=== PATIENT | female | born 1980 | race Caucasian/White ===

== ENCOUNTER 2019-12-28 08:21 | Emergency (ER) | payer MEDICARE, MEDICAID, SELFPAY ==
[2019-12-28 08:27] VITALS: BP 131/65; BP 138/70; PULSE 67; PULSE 78; RESP 16; TEMP 37.1; O2SAT 96; O2SAT 98; BMI 34.4
--- NOTE | 2019-12-28 08:50 | ECG_ITS ---
Test Reason : PAIN Blood Pressure : / mmHG Vent. Rate : 062 BPM Atrial Rate : 062 BPM P-R Int : 130 ms QRS Dur : 076 ms QT Int : 412 ms P-R-T Axes : 026 012 002 degrees QTc Int : 418 ms Normal sinus rhythm Nonspecific T wave abnormality Inferior leads Borderline ECG No previous ECGs available Referred By: Landy Rothman Electronically Signed By:CECILIO CHAND MD
[2019-12-28] MEDS: Ketorolac Tromethamine 30 MG/ML VIAL IVPUSH (08:52)
[2019-12-28] MEDS: Cyclobenzaprine HCl 10 MG TABLET PO (08:52)
[2019-12-28] MEDS: Lidocaine 4 % Patch ADH..PATCH 1 PATCH TRANSDERMA (08:53)
--- NOTE | 2019-12-28 09:01 | ED.EXTPRO ---
HPI - Extremity Problem General Chief complaint: Extremity Injury, Upper Stated complaint: LEFT SHOULD PAIN,NO KNOWN/RECENT INJURY Time Seen by Provider: 12/28/19 08:25 Source: patient and EMS Mode of arrival: EMS Limitations: no limitations History of Present Illness HPI Narrative: 39 y/o female with history of asthma presenting with acute onset of posterior left shoulder pain that started when she woke up this morning. She states it radiates to under her left armpit. Her was concerned it was cardiac pain so she called 911. Patient states she has never had pain like this before. She took tramdol and tylenol with only minor improvement. She denies injury. She is able to move it fully but it is painful. She states the pain is also worse with deep inspiration. MD Complaint: extremity pain Onset (ago): hour(s) (2) Pain Consistency: constant Location: left and upper extremity Severity scale (1-10): 6 Quality: aching and sharp Radiation: proximal (to under left axilla ) and other Relieving factors: nothing and immobilization Exacerbating factors: range of motion Associated symptoms: denies other symptoms Related Data Previous Rx's Medication Instructions Recorded cyclobenzaprine 10 mg PO TID PRN #20 tab 12/28/19 ibuprofen 600 mg PO Q8H PRN #30 tab NS 12/28/19 Allergies Allergy/AdvReac Type Severity Reaction Status Date / Time acetaminophen [From VICODIN] AdvReac Intermediate UPSET Unverified 11/26/19 19:34 STOMACH hydrocodone [From VICODIN] AdvReac Intermediate UPSET Unverified 11/26/19 19:34 STOMACH promethazine [From PHENERGAN] AdvReac Mild TWITCHY Unverified 11/26/19 19:34 Review of Systems Review of Systems: Constitutional: No Fever, No Chills ENT/Mouth: No sore throat, No Rhinorrhea, No Swallowing Difficulty Eyes: No Eye Pain, No Swelling, No Redness Cardiovascular: No Chest Pain, No SOB, No Orthopnea, No Edema Respiratory: No Cough, No Sputum, No Wheezing, No dyspnea Gastrointestinal: + Nausea related to pain, No Vomiting, No Diarrhea, No abdominal Pain Genitourinary: No Dysuria, No Urinary Frequency, No Hematuria Musculoskeletal: + joint pain, + Myalgias Skin: No Skin Lesions, No rash Neuro: No Weakness, No Numbness, No Dizziness, No Headache Psych: + Anxiety/Panic, No Depression Heme/Lymph: No Bruising, No Lymphadenopathy PMFSH Past Medical History Attestation statement: The following information was validated with the patient. Medical History (Updated 12/28/19 @ 09:55 by Ingrid Montague) Asthma Bipolar 1 disorder Bone infection Finger fracture, right GERD (gastroesophageal reflux disease) Surgical History (Updated 12/28/19 @ 08:33 by Ingrid Montague) Hx of cholecystectomy Hx of foot operation Social History Social History Smoking Status: Current every day smoker Use of substances other than those prescribed or required for medical reasons: Yes Substance Use Type: Marijuana Substance Use Frequency: Weekly Advance Directives: No Advance Directives Information Provided: No Physical Exam Vital Signs: Vital Signs: Vital Signs Temp Pulse Resp BP Pulse Ox 12/28/19 08:27 98.7 F 67 16 131/65 96 Body Mass Index 34.4 Appearance: Alert. Oriented X3. No acute distress. Eyes: Pupils equal, round and reactive to light. ENT: Pharynx normal. Neck: Normal inspection. Neck supple. CVS: Normal heart rate and rhythm. Pulses normal. Respiratory: No respiratory distress. Breath sounds normal. Abdomen: Soft and nontender. +BS x4 Skin: Skin warm and dry. Normal skin color. Normal skin turgor. No rashes. Extremities: left posterior shoulder tenderness medial to scapula with minor muscle spasm, full ROM, NV intact Neuro: Oriented X 3. No motor deficit. No sensory deficit. Course Course Course Narrative: patient continues to report some pain after tramadol and tylenol. pain is likely muscular in nature, will give trial of flexeril, toradol, and lidoderm. will get EKG Reevaluation(s) Reevaluation #1: EKG normal. patient feels significantly improved after meds. she is stable for d/c. will treat for musculoskeletal pain. instructed to f/u with PCP and return precautions discussed. MDM - Extremity (Nontraumatic) ECG Data Attestation EKG: I personally reviewed and interpreted this ECG as follows: ECG interpretation date: 12/28/19 ECG interpretation time: 09:17 Interpretation: normal sinus rhythm, HR 62 bpm, normal MI interval, no ST/T wave changes to suggest ischemia Critical Care Time Critical Care Time Critical Care Time: No Discharge Plan Discharge Clinical Impression: Nontraumatic shoulder pain Qualifiers: Laterality: left Qualified Code(s): M25.512 - Pain in left shoulder Patient Disposition: Home, Self-Care Instructions: Shoulder Pain (ED) Additional Instructions: Use ice 3-4 times per day today, for 20 minutes at a time. Tomorrow use heat several times per day. If you have return of severe pain call 911 or come back to the ER for further evaluation. Follow up with your Primary Care Doctor this week. Prescriptions: New cyclobenzaprine 10 mg tablet 10 mg PO TID PRN (Reason: muscle spasm) Qty: 20 RF: 0 ibuprofen 600 mg tablet 600 mg PO Q8H PRN (Reason: pain) Qty: 30 RF: 0
--- NOTE | 2019-12-28 09:41 | PC.NURSE ---
PT REPORTS PAIN IMPROVING AFTER THE MEDICATION, PAIN AT 4/10
[2019-12-28 10:17] VITALS: BP 123/65; PULSE 64; RESP 16; O2SAT 97
== END 2019-12-28 10:20 | disposition home or self-care (01) ==
PROVIDERS: Emergency Provider Emergency Medicine; PCP Family Medicine
DX: M25.512 Pain in left shoulder (principal); F17.200 Nicotine dependence, unspecified, uncomplicated; Z71.6 Tobacco abuse counseling; Z79.899 Other long term (current) drug therapy
CPT/HCPCS: 93005; 96372; 96374; 99284; J1885

== ENCOUNTER 2020-09-28 14:44 | Emergency (ER) | payer MEDICARE, MEDICAID, SELFPAY ==
[2020-09-28 16:20] VITALS: BP 136/91; PULSE 71; RESP 16; TEMP 36.9; O2SAT 97; BMI 20.7
[2020-09-28 16:51] LABS: MANUAL DIFF FLAG NO
[2020-09-28 16:53] LABS: Glucose Urine UA NEG (NEG); Leukocyte Esterase Urine NEG (NEG); Nitrite Urine NEG (NEG); PH 5.5 (5.0-8.0); Urine Blood NEG (NEG); Urine Ketones NEG (NEG); Urine Protein NEG (NEG-TRACE)
[2020-09-28 16:54] LABS: Appearance Urine CLEAR; Color Urine YELLOW
[2020-09-28 16:55] LABS: Basophils Percent Auto 0.4 % (0-2); Eosinophils Absolute Auto 0.1 X10*3/uL (0.0-0.4); Eosinophils Percent Auto 1.2 % (0-4); Hematocrit 41.1 % (37-47); Imm Gran Abs Auto 0.03 X10*3/uL (0.00-0.03); Imm Gran Pct Auto 0.3 % (0.0-0.4); Lymphocytes Absolute Auto 2.9 X10*3/uL (1.2-4.9); Lymphocytes Percent Auto 29.9 % (20-40); Mean Corpuscular HGB Conc 34.1 g/dl (31.0-35.0); Mean Corpuscular Hemoglobin 31.6 pg (27.0-33.0); Mean Corpuscular Volume 92.8 fL (80-98); Mean Platelet Volume 9.9 fL (9.4-12.3); Monocytes Absolute Auto 0.8 X10*3/uL (0.1-1.2); Monocytes Percent Auto 8.7 % (2-11); Neutrophils Absolute Auto 5.7 X10*3/uL (2.0-8.3); Neutrophils Percent Auto 59.5 % (45-73); Platelet Count 253 X10*3/uL (160-400); Red Blood Count 4.43 X10*6/uL (4.20-5.50); Red Cell Distribution Width 12.4 % (11.0-16.0); White Blood Count 9.7 X10*3/uL (4.8-10.8)
[2020-09-28 17:10] LABS: Anion Gap 13 (12-20); Blood Urea Nitrogen 13 mg/dL (9-16); Calcium 9.5 mg/dL (8.4-10.2); Carbon Dioxide 22 mmol/L (22-29); Chloride 108 mmol/L (96-108); Creatinine Clr Calc Pharmacy 58.7; Estimated Glomerular Filt Rate 46; Glucose Random 89 mg/dL (60-115); Potassium 4.2 mmol/L (3.3-5.1); Sodium 139 mmol/L (135-145)
[2020-09-28 17:14] LABS: COVID-19 Test Negative (Negative); IDNOW Serial# 9DD0AD1C
--- NOTE | 2020-09-28 17:43 | ED_ITS ---
HPI - Nausea/Vomiting/Diarrhea General Chief complaint: Nausea/Vomiting/Diarrhea Stated complaint: sewage exposure Time Seen by Provider: 09/28/20 17:43 Source: patient Mode of arrival: ambulatory Limitations: no limitations History of Present Illness HPI Narrative: Patient with sewage back up in her apartment for days. Gases and sewage fluids coming up through the floor. MD elicited complaint: nausea, vomiting and diarrhea Onset (ago): week(s) (2) Description of diarrhea: watery Associated nausea: Yes Associated abdominal pain: Yes Location of pain: diffuse Relieving factors: none Context: other (exposed to sewage) Related Data Previous Rx's Medication Instructions Recorded cyclobenzaprine 10 mg PO TID PRN #20 tab 12/28/19 ibuprofen 600 mg PO Q8H PRN #30 tab NS 12/28/19 ondansetron HCl [Zofran] 4 mg PO Q8H PRN #10 tab 09/28/20 Allergies Allergy/AdvReac Type Severity Reaction Status Date / Time acetaminophen [From VICODIN] AdvReac Intermediate UPSET Verified 09/28/20 16:25 STOMACH hydrocodone [From VICODIN] AdvReac Intermediate UPSET Verified 09/28/20 16:25 STOMACH promethazine [From PHENERGAN] AdvReac Mild TWITCHY Verified 09/28/20 16:25 Review of Systems Constitutional: Constitutional: Reports no additional constitutional complaints Eyes: Eyes: Reports no additional eye complaints ENT: Denies dizziness Cardiovascular: Cardiovascular: Reports no additional cardiovascular complaints Respiratory: Respiratory: Reports as per HPI Gastrointestinal: Gastrointestinal: Reports nausea Genitourinary: Genitourinary: Reports no additional female genitourinary complaints Musculoskeletal: Musculoskeletal: Reports no additional musculoskeletal complaints Integumentary/Breasts: Skin/Breast: Denies rash Neurologic: Reports system reviewed and no additional complaints, except as documented, Denies dizziness and Denies Sensory deficit (Neuro) Psychiatric: Psychiatric: Denies anxiety [facility] Past Medical History Medical History (Updated 09/28/20 @ 17:52 by Gaudencio Carvajal MD) Asthma Bipolar 1 disorder Bone infection CKD (chronic kidney disease) Finger fracture, right GERD (gastroesophageal reflux disease) Surgical History (Updated 12/28/19 @ 08:33 by Ingrid Montague) Hx of cholecystectomy Hx of foot operation Social History Social History Substance Use Type: Marijuana Advance Directives: No Advance Directives Information Provided: No Physical Exam Vital Signs: Vital Signs: Last Vital Signs Temp 98.4 F 09/28/20 16:20 Pulse 71 09/28/20 16:20 Resp 16 09/28/20 16:20 BP 136/91 H 09/28/20 16:20 Pulse Ox 97 09/28/20 16:20 Body Mass Index 20.7 Const: General: healthy appearing Nutritional Appearance: average body habitus Orientation/consciousness: oriented to person and patient oriented x3 Limitations: no limitations HENMT: Head: Yes normal to inspection Ears: external ears normal General nose exam: Normal external nose present Mouth: Normal oral and palatal mucosa present and oropharynx normal Throat: Yes posterior oropharynx normal Eyes: General: appearance normal, both eyes and all related structures Neck: Other: supple Neck: Yes normal visual inspection Chest: Chest palpation & inspection: normal inspection of the chest Resp: Auscultation: clear to auscultation bilaterally Cardio: Jugular venous distension: no JVD Rate: regular rate Rhythm: regular rhythm Heart sounds: S1 normal heart sound present and S2 normal heart sound present GI: Inspection: Yes normal to inspection Palpation (GI): Soft to palpation, nontender and No hepatosplenomegaly present Auscultation: normal bowel sounds : General: Yes no CVA tenderness Back/Spine/Pelvis: Back: no CVA tenderness Skin: General skin exam: no rashes or lesions noted Neuro: General: oriented to person and patient oriented x3 Cranial nerves: Yes CN's II-XII intact bilaterally Motor exam (neuro): 5/5 motor strength present throughout Sensory Exam: No Sensory deficit (Neuro) Extrem: General: Yes normal to inspection Psych: Appearance: grossly normal Course Reevaluation(s) Reevaluation #1: No current infectious process, patient with N/V/D secondary to noxious exposure will dc home on zofran to remain hydrated Time: 17:51 MDM - Nausea/Vomiting/Diarrhea Lab Data Result diagrams: 09/28/20 16:45 09/28/20 16:45 Labs: Lab Results 09/28/20 09/28/20 09/28/20 Range/Units 16:42 16:42 16:45 WBC 9.7 (4.8-10.8) X10*3/uL RBC 4.43 (4.20-5.50) X10*6/uL Hgb 14.0 (12.0-16.0) g/dl Hct 41.1 (37-47) % MCV 92.8 (80-98) fL MCH 31.6 (27.0-33.0) pg MCHC 34.1 (31.0-35.0) g/dl RDW 12.4 (11.0-16.0) % Plt Count 253 (160-400) X10*3/uL MPV 9.9 (9.4-12.3) fL Immature Gran % (Auto) 0.3 (0.0-0.4) % Neut % (Auto) 59.5 (45-73) % Lymph % (Auto) 29.9 (20-40) % [place] % (Auto) 8.7 (2-11) % Eos % (Auto) 1.2 (0-4) % Baso % (Auto) 0.4 (0-2) % Lymph # (Auto) 2.9 (1.2-4.9) X10*3/uL [place] # (Auto) 0.8 (0.1-1.2) X10*3/uL Eos # (Auto) 0.1 (0.0-0.4) X10*3/uL Baso # (Auto) 0.0 (0.0-0.2) X10*3/uL Abs Immat Gran (auto) 0.03 (0.00-0.03) X10*3/uL Absolute Neuts (auto) 5.7 (2.0-8.3) X10*3/uL Absolute Nucleated RBC 0.000 (0.0-0.012) X10*3/uL Nucleated RBC % (auto) 0.0 (0.0-0.2) /100WBC Sodium (135-145) mmol/L Potassium (3.3-5.1) mmol/L Chloride (96-108) mmol/L Carbon Dioxide (22-29) mmol/L Anion Gap (12-20) BUN (9-16) mg/dL Creatinine (0.5-1.4) mg/dL Estim Creat Clear Calc Estimated GFR Random Glucose (60-115) mg/dL Calcium (8.4-10.2) mg/dL Urine Color YELLOW Urine Appearance CLEAR Urine pH 5.5 (5.0-8.0) Ur Specific [place] 1.010 (1.005-1.025) Urine Protein NEG (NEG-TRACE) MG/DL Urine Glucose (UA) NEG (NEG) MG/DL Urine Ketones NEG (NEG) MG/DL Urine Blood NEG (NEG) Urine Nitrite NEG (NEG) Ur Leukocyte Esterase NEG (NEG) COVID-19 (JEFF) Negative (Negative) COVID-19 Clin Com See Note 09/28/20 Range/Units 16:45 WBC (4.8-10.8) X10*3/uL RBC (4.20-5.50) X10*6/uL Hgb (12.0-16.0) g/dl Hct (37-47) % MCV (80-98) fL MCH (27.0-33.0) pg MCHC (31.0-35.0) g/dl RDW (11.0-16.0) % Plt Count (160-400) X10*3/uL MPV (9.4-12.3) fL Immature Gran % (Auto) (0.0-0.4) % Neut % (Auto) (45-73) % Lymph % (Auto) (20-40) % [place] % (Auto) (2-11) % Eos % (Auto) (0-4) % Baso % (Auto) (0-2) % Lymph # (Auto) (1.2-4.9) X10*3/uL [place] # (Auto) (0.1-1.2) X10*3/uL Eos # (Auto) (0.0-0.4) X10*3/uL Baso # (Auto) (0.0-0.2) X10*3/uL Abs Immat Gran (auto) (0.00-0.03) X10*3/uL Absolute Neuts (auto) (2.0-8.3) X10*3/uL Absolute Nucleated RBC (0.0-0.012) X10*3/uL Nucleated RBC % (auto) (0.0-0.2) /100WBC Sodium 139 (135-145) mmol/L Potassium 4.2 (3.3-5.1) mmol/L Chloride 108 (96-108) mmol/L Carbon Dioxide 22 (22-29) mmol/L Anion Gap 13 (12-20) BUN 13 (9-16) mg/dL Creatinine 1.29 (0.5-1.4) mg/dL Estim Creat Clear Calc 58.7 Estimated GFR 46 Random Glucose 89 (60-115) mg/dL Calcium 9.5 (8.4-10.2) mg/dL Urine Color Urine Appearance Urine pH (5.0-8.0) Ur Specific [place] (1.005-1.025) Urine Protein (NEG-TRACE) MG/DL Urine Glucose (UA) (NEG) MG/DL Urine Ketones (NEG) MG/DL Urine Blood (NEG) Urine Nitrite (NEG) Ur Leukocyte Esterase (NEG) COVID-19 (JEFF) (Negative) COVID-19 Clin Com Discharge Plan Discharge Clinical Impression: Gastroenteritis, Vomiting and diarrhea Patient Disposition: Home, Self-Care Instructions: Acute Nausea and Vomiting (ED), Acute Diarrhea (ED) Additional Instructions: must remove yourself from noxious environment Prescriptions: New ondansetron HCl [Zofran] 4 mg tablet 4 mg PO Q8H PRN (Reason: nausea and vomiting) Qty: 10 RF: 0 No Action cyclobenzaprine 10 mg tablet 10 mg PO TID PRN (Reason: muscle spasm) Qty: 20 RF: 0 ibuprofen 600 mg tablet 600 mg PO Q8H PRN (Reason: pain) Qty: 30 RF: 0 Referrals: Jenifer Castellanos, MSN [Primary Care Provider] - 1 week
== END 2020-09-28 18:01 | disposition home or self-care (01) ==
PROVIDERS: Emergency Provider Emergency Medicine; PCP Family Medicine
DX: K52.9 Noninfective gastroenteritis and colitis, unspecified (principal); Z20.822 Contact with and (suspected) exposure to COVID-19
CPT/HCPCS: 36415; 80048; 81003; 85025; 87635; 99283